=== PATIENT | female | born 1965 | race Caucasian/White ===

== ENCOUNTER 2017-02-02 12:26 | Observation (INO) | payer OTHER ==
[~2017-02-02] VITALS: Ht 175.3 cm; Wt 89.5 kg
[~2017-02-02 12:26] MED LIST: ALPRAZOLAM0.5 MG PO; AMOXICILLIN875 MG PO; ASPIR-LOW81 MG PO; BRILINTA90 MG PO; CLINDAMYCIN HC300 MG PO; CLONAZEPAM0.5 MG PO; COUMADIN10 MG PO; COUMADIN3 MG PO; COUMADIN5 MG PO; COZAAR25 MG PO; DIGITEK250 MC2 PO; DIGOXIN250 MCG PO; DUONEB 2.5-0.5 M3 ML AEROSOL; ENOXAPARIN120 MG/0.8 SC; FAMOTIDINE20 MG PO; FUROSEMIDE20 MG PO; FUROSEMIDE40 MG PO; HUMULIN R100 UNITS/ SC; KLONOPIN0.5 M1 PO; KLOR-CON M2020 MEQ PO; LANTUS 10100 UNITS/ SC; LASIX40 MG PO; LEVAQUIN500 MG PO; LEVEMIR FL100 UNIT/1 SC; LISINOPRIL10 MG PO; LISINOPRIL2.5 MG PO; LISINOPRIL20 MG PO; LO-DOSE ASPIRIN81 M1 PO; LOVENOX120 MG/0.8 SC; METOLAZONE2.5 MG PO; METOPROLOL SUCC25 MG PO; NOVOLOG 10100 UNITS/ SC; NYSTATIN15 GM TP; PERCOCET 5/31 TABLET PO; PLAVIX75 MG PO; POTASSIUM CHLO20 ME1 PO; PRAVACHOL40 MG PO; PRAVASTATIN SOD40 MG PO; PREDNISONE10 MG PO; TOPROL XL25 MG PO; TRAMADOL HCL50 MG PO; VENTOLIN HFA18 GM IH; WARFARIN SODIUM10 MG PO; XANAX0.5 MG PO
[2017-02-02 13:40] LABS: D-DIMER ELISA 0.38 mg/L FEU (< 0.57)
[2017-02-02 13:46] LABS: CHLORIDE 85 mEq/L (99-109); POTASSIUM 5.1 mEq/L (3.7-5.4)
[2017-02-02 13:49] LABS: ANION GAP 16 MEQ/L (2-14)
[2017-02-02 13:51] LABS: GFR ESTIMATE (CALCULATED) > 59 mL/min/
[2017-02-02 13:52] LABS: UREA NITROGEN (BUN) 26 mg/dL (9-23)
[2017-02-02 13:54] LABS: GLUCOSE 608 mg/dL (70-99); SODIUM 119 mEq/L (136-147)
[2017-02-02 13:57] LABS: TROP-I INTERPRETATION NEGATIVE; TROPONIN-I 0.17 ng/mL (0.0-0.30)
[2017-02-02 14:05] LABS: QUANTITATIVE HCG < 4.0 MIU/ML
[2017-02-02 14:35] LABS: HEMATOCRIT 38.3 % (36.0-46.0); MCH 26.1 PG (29.0-34.0); MCHC 30.5 G/DL (30.0-36.0); MCV 85.5 FL (83-99); MEAN PLAT.VOLUME 12.2 uM^3 (9.5-12.4); PATIENT HCT 38.3; PATIENT HGB 11.7; PLATELET COUNT 339 K/uL (156-360); RBC DIS.WIDTH-CV 16.3 % (11.8-14.6); RED BLOOD COUNT 4.48 M/uL (3.80-5.20); WHITE BLOOD COUNT 8.9 K/uL (4.1-10.2)
[2017-02-02] MEDS ORDERED: KLONOPIN1 MG PO (15:07)
[2017-02-02] MEDS ORDERED: POTASSIUM GLUCO2 MEQ PO (15:11)
[2017-02-02] MEDS ORDERED: MIRTAZAPINE30 MG PO (15:12)
[2017-02-02] MEDS ORDERED: LYRICA75 MG PO (15:12)
[2017-02-02] MEDS ORDERED: NEURONTIN600 MG PO (15:12)
[2017-02-02] MEDS ORDERED: SPIRONOLACTONE25 MG PO (15:13)
[2017-02-02] MEDS ORDERED: MAGNESIUM250 MG PO (15:14)
[2017-02-02 17:03] LABS: CREATININE 0.6 mg/dL (0.6-1.3); POTASSIUM 4.4 mEq/L (3.7-5.4)
[2017-02-02 17:11] VITALS: BP 118/80
[2017-02-04 09:26] LABS: POINT-OF-CARE METER ID UU13113702
== END 2017-02-02 17:10 | disposition left against medical advice (07) ==
LOC: EME 12:26 → EDOF 15:36
PROVIDERS: Hospitalist; Physician Assistant
DX: R07.89 Other chest pain (principal); R06.02 Shortness of breath; J44.9 Chronic obstructive pulmonary disease, unspecified; E11.65 Type 2 diabetes mellitus with hyperglycemia; E87.1 Hypo-osmolality and hyponatremia; I25.5 Ischemic cardiomyopathy; Z95.810 Presence of automatic (implantable) cardiac defibrillator; I25.10 Atherosclerotic heart disease of native coronary artery without angina pectoris; I25.2 Old myocardial infarction; Z95.5 Presence of coronary angioplasty implant and graft; Z79.4 Long term (current) use of insulin; Z86.711 Personal history of pulmonary embolism; Z86.718 Personal history of other venous thrombosis and embolism; I50.9 Heart failure, unspecified; Z91.19 Patient's noncompliance with other medical treatment and regimen; F17.200 Nicotine dependence, unspecified, uncomplicated
CPT/HCPCS: 71010; 80047; 80048; 80048 91; 81003; 82800; 82948; 83880; 84484; 84702; 85027; 85379; 93005; 99281; 99284; G0378; J7030